=== PATIENT | male | born 1990 | race Caucasian/White ===

== ENCOUNTER 2022-03-01 11:36 | Emergency (ER) | payer BC ==
[~2022-03-01] VITALS: Ht 180.3 cm; Wt 68.0 kg
--- NOTE | 2022-03-01 11:46 | NUR ---
PT IN BED BREATHING IS EVEN AND UNLABORED VITAL SIGNS WNL PLACED IN HOSPITAL GOWN.
[2022-03-01] MEDS ORDERED: HYDROMORPHONE 1 MG/1 ML DISP.SYRIN ONE (11:57)
[2022-03-01] MEDS ORDERED: IV NS 0.9% 1,000 ML IV ONE (12:00)
[2022-03-01] MEDS ORDERED: HYDROMORPHONE 1 MG/1 ML DISP.SYRIN IV ONE (12:00)
--- NOTE | 2022-03-01 12:08 | NUR ---
CALLED DR. OSBORNE FOR UROLOGY CONSULT. NO ANSWER. LEFT A MESSAGE REQUESTING FOR A CALL BACK.
[2022-03-01] MEDS ORDERED: LIDOCAINE 1% INJ 50 ML MDV IJ ONE (12:14)
--- NOTE | 2022-03-01 12:31 | NUR ---
SENT A TEXT MESSAGE TO DR. OSBORNE TO FOLLOW UP FOR PT CONSULT.
[2022-03-01 12:40] LABS: BASOPHILS % (AUTO) 0.2 % (0.0-2.0); EOSINOPHILS % (AUTO) 3.4 % (0.0-6.0); HEMATOCRIT 37 % (39-51); HEMOGLOBIN 12.4 g/dL (13.5-17.5); LYMPHOCYTES # (AUTO) 1.9 K/uL (0.8-4.8); LYMPHOCYTES % (AUTO) 24.9 % (20.0-44.0); MEAN CORPUSCULAR HGB CONC 34 g/dl (31.0-36.0); MEAN CORPUSCULAR VOLUME 92 fL (80-96); MONOCYTES # (AUTO) 0.7 K/uL (0.1-1.30); MONOCYTES % (AUTO) 9.3 % (2.0-12.0); NEUTROPHILS # (AUTO) 4.8 K/uL (1.8-8.9); NEUTROPHILS % (AUTO) 62.2 % (43.0-81.0); PLATELET COUNT (AUTO) 259 K/uL (150-450); RED BLOOD CELL COUNT(AUTO) 4.02 MIL/uL (4.5-6.0); WHITE BLOOD COUNT (AUTO) 7.7 K/uL (4.3-11.0)
[2022-03-01 12:51] LABS: CALCIUM, SERUM 8.6 mg/dL (8.5-10.1); CREATININE 0.9 mg/dL (0.6-1.3); POTASSIUM 3.8 mmol/L (3.5-5.1)
[2022-03-01] MEDS ORDERED: NS 0.9% IV ONE ×2 (13:00)
[2022-03-01] MEDS ORDERED: PHENYLEPHRINE IV ONE ×2 (13:00)
--- NOTE | 2022-03-01 13:50 | NUR ---
phenylnephrine admisitstered intercorpeal infusion my the ER Physician.
[2022-03-01 15:29] VITALS: BP 123/75
== END 2022-03-01 15:29 | disposition home or self-care (01) ==
LOC: ER 11:36
DX: N48.30 Priapism, unspecified (principal)
CPT/HCPCS: 99284; 54220; 96360; 85025; 80048; 85610; 85730; 36415; 86850; J3490; J2370; J7030; A4216; A6403; J1170; J7050